=== PATIENT | male | born 1965 ===

== ENCOUNTER 2016-12-25 20:37 | Emergency (ER) | payer OTHER ==
[2016-12-25 20:54] VITALS: BP 113/66; PULSE 111; RESP 17; O2SAT 98
[2016-12-25] MEDS ORDERED: Sodium Chloride 0.9% 1,000 ML IV STA (21:23)
--- NOTE | 2016-12-25 21:27 | ED PDOC ---
HPI: General Adult Time Seen by Provider: 12/25/16 20:48 Chief Complaint (Nursing): Fever Chief Complaint (Provider): fever History Per: Patient History/Exam Limitations: no limitations Onset/Duration Of Symptoms: Days (2) Current Symptoms Are (Timing): Still Present Additional History Per: Patient Additional Complaint(s): 51 y/o male presents for eval of fever, tmax 103, x 2 days. Associated headaches, bodyaches, nasal drainage, dry cough, nausea. Patient states he did not medicate for his fever because he is currently on antibiotics for H. Pylori x 8 days so he figured that would help with his fever. Patient also notes noncloody diarrhea x 3 days but states he was told it could be a side effect of antibiotics. Denies vomiting, ear pain, throat pain, chest pain, shortness of breath, abdominal pain, urinary symptoms, sick contacts, recent travel. Past Medical History Reviewed: Historical Data, Nursing Documentation, Vital Signs Vital Signs: Last Vital Signs Temp 103.2 F H 12/25/16 22:35 Pulse 111 H 12/25/16 20:44 Resp 17 12/25/16 20:44 BP 113/66 12/25/16 20:44 Pulse Ox 98 12/26/16 00:28 - Medical History PMH: No Chronic Diseases - Surgical History Surgical History: Endoscopy - Family History Family History: States: Unknown Family Hx - Social History Current smoker - smoking cessation education provided: No Alcohol: Occasional Drugs: Denies - Home Medications Home Medications: Ambulatory Orders Medication Instructions Recorded Oseltamivir [Tamiflu] 75 mg PO BID #9 cap 12/26/16 - Allergies Allergies/Adverse Reactions: Allergies Allergy/AdvReac Type Severity Reaction Status Date / Time No Known Allergies Allergy Verified 12/25/16 20:46 Review of Systems ROS Statement: Except As Marked, All Systems Reviewed And Found Negative Constitutional: Positive for: Fever, Chills ENT: Positive for: Nose Discharge Respiratory: Positive for: Cough Physical Exam - Reviewed Nursing Documentation Reviewed: Yes Vital Signs Reviewed: Yes - Physical Exam Appears: Positive for: Well, Non-toxic, No Acute Distress Head Exam: Positive for: ATRAUMATIC, NORMAL INSPECTION, NORMOCEPHALIC Skin: Positive for: Normal Color Eye Exam: Positive for: Normal appearance ENT: Positive for: Normal ENT Inspection Cardiovascular/Chest: Positive for: Regular Rate, Rhythm Respiratory: Positive for: Normal Breath Sounds Gastrointestinal/Abdominal: Positive for: Normal Exam Back: Positive for: Normal Inspection Extremity: Positive for: Normal ROM Neurologic/Psych: Positive for: Alert, Oriented - Laboratory Results Result Diagrams: 12/25/16 21:45 12/25/16 21:45 - ECG O2 Sat by Pulse Oximetry: 98 - Radiology X-Ray: Viewed By Me (reviewed with ED attending) X-Ray Interpretation: No Acute Disease - Progress ED Course And Treament: labs, urine, flu, strep, chest xray, IV fluids, Tylenol PO, ibuprofen PO On re-eval, patient states he is feeling better. Case discussed with ED attending Dr. Lindsey; will treat for presumed virus with Tamiflu. Case discussed with Dr. Prieto, agrees with plan to d/c. To follow up in office. Patient educated on findings, discharged with rx Tamiflu (dose given in ED). Advised Tylenol PRN fever. Fluids. Rest Return to ED for worsening/concerning symptoms. Disposition - Clinical Impression Clinical Impression: Influenza-like illness - Patient ED Disposition Is Patient to be Admitted: No Counseled Patient/Family Regarding: Studies Performed, Diagnosis, Need For Followup, Rx Given - Disposition Disposition: Routine/Home Disposition Time: 00:35 Condition: IMPROVED Additional Instructions: Call Dr. Prieto tomorrow to schedule follow up appointment. Take Tylenol (every 4-6 hours) as needed for fever. Take Tamiflu as directed. Drink plenty of fluids. Rest. Return to ED for worsening/concerning symptoms. Prescriptions: Oseltamivir [Tamiflu] 75 mg PO BID #9 cap Instructions: Viral Syndrome (ED)
[2016-12-25 21:55] LABS: BASO % 0.5 % (0.0-2.0); EOS % 0.1 % (0.0-4.0); HEMATOCRIT 44.8 % (35.0-51.0); LYMPH # 0.5 K/uL (1.0-4.3); LYMPH % 11.5 % (20.0-40.0); MEAN CELL VOLUME 79.8 fl (80.0-94.0); MEAN CORPUSCULAR HEMOGLOBIN 27.1 pg (27.0-31.0); MEAN CORPUSCULAR HGB CONC 33.9 g/dL (33.0-37.0); MEAN PLATELET VOLUME 8.4 fl (7.2-11.7); MONO # 0.2 K/uL (0.0-0.8); MONO % 5.2 % (0.0-10.0); NEUT # 3.6 K/uL (1.8-7.0); NEUT % 82.7 % (50.0-75.0); RED CELL DISTRIBUTION WIDTH 13.2 % (11.5-14.5); WHITE BLOOD COUNT 4.3 K/uL (4.8-10.8)
[2016-12-25 22:05] LABS: ALB/GLOB RATIO 1.5 (1.0-2.1); ALKALINE PHOSPHATASE 58 U/L (38-126); ALT/SGPT 46 U/L (21-72); AST/SGOT 34 U/L (17-59); BILIRUBIN,TOTAL 0.3 mg/dl (0.2-1.3); BLOOD UREA NITROGEN 17 mg/dl (9-20); CALCIUM 9.7 mg/dL (8.4-10.2); CARBON DIOXIDE 22 mmol/L (22-30); CHLORIDE 102 mmol/L (98-107); GFR AFRICAN-AMERICAN > 60; GLUCOSE,RANDOM 100 mg/dL (75-110); SODIUM 138 mmol/l (132-148)
[2016-12-25 22:48] LABS: RBC URINE 3 /hpf (0-3); URINE BACTERIA FEW (<OCC); URINE BILIRUBIN NEGATIVE (NEGATIVE); URINE BLOOD NEGATIVE (NEGATIVE); URINE COLOR YELLOW (YELLOW); URINE GLUCOSE (UA) NEG (Normal); URINE KETONE TRACE mg/dL (NEGATIVE); URINE LEUKOCYTE ESTERASE NEG Leu/uL (Negative); URINE PROTEIN NEGATIVE (NEGATIVE); URINE UROBILINOGEN 0.2-1.0 mg/dL (0.2-1.0); WBC URINE < 1 /hpf (0-5)
[2016-12-26 00:38] VITALS: TEMP 101
--- NOTE | 2016-12-26 08:08 | RAD ---
HISTORY: fever, cough COMPARISON: No prior. TECHNIQUE: Chest PA and lateral FINDINGS: LUNGS: No active pulmonary disease. PLEURA: No significant pleural effusion identified. No pneumothorax apparent. CARDIOVASCULAR: Normal. OSSEOUS STRUCTURES: No significant abnormalities. VISUALIZED UPPER ABDOMEN: Normal. OTHER FINDINGS: None. IMPRESSION: No evidence of pneumonia or infiltrate in the lungs.
== END 2016-12-26 00:38 | disposition home or self-care (01) ==
LOC: H.ER 20:37
DX: B34.9 Viral infection, unspecified (principal); R50.9 Fever, unspecified; R51 Headache; R05 Cough; R11.0 Nausea